=== PATIENT | female | born 1995 | race Asian ===

== ENCOUNTER 2017-10-04 15:57 | Emergency (ER) | payer OTHER ==
[~2017-10-04] VITALS: Ht 149.9 cm; Wt 60.1 kg
[~2017-10-04 15:57] MED LIST: ALBU0.0912 INH
[2017-10-04 16:16] VITALS: BP 120/77
--- NOTE | 2017-10-04 16:20 | NUR ---
Patient ambulated to bed 03.
--- NOTE | 2017-10-04 16:23 | NUR ---
Patient being evaluated by Dr. Bowling at bedside.
[2017-10-04] MEDS ORDERED: ACETAMINOPHEN EXTRA STRENGTH 500 MG TAB PO ONE (16:30)
--- NOTE | 2017-10-04 16:30 | NUR ---
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 Denies LOC. Denies N/V. AOX4, clear speech. VSS.
[2017-10-04 17:06] VITALS: BP 120/77
--- NOTE | 2017-10-04 17:06 | NUR ---
Patient discharged with v/s stable. Written and verbal after care instructions given and explained. Patient alert, oriented and verbalized understanding of instructions. Ambulatory with steady gait. All questions addressed prior to discharge. ID band removed. Patient advised to follow up with PMD. Rx of Tylenol 500mg given. Patient educated on indication of medication including possible reaction and side effects. Opportunity to ask questions provided and answered.
== END 2017-10-04 17:06 | disposition home or self-care (01) ==
LOC: MED 15:57
DX: S09.90XA Unspecified injury of head, initial encounter (principal); J45.909 Unspecified asthma, uncomplicated; Z79.899 Other long term (current) drug therapy; W22.8XXA Striking against or struck by other objects, initial encounter; Y93.89 Activity, other specified; Y92.89 Other specified places as the place of occurrence of the external cause; Y99.8 Other external cause status
CPT/HCPCS: 70450; 99284

== ENCOUNTER → 2018-02-15 | Outpatient (CLI) | payer OTHER ==
[2018-02-15 09:27] LABS: BASOPHILS % (AUTO) 0.7 % (0.0-2.0); EOSINOPHILS # (AUTO) 0.1 K/uL (0-0.4); EOSINOPHILS % (AUTO) 2.6 % (0.0-4.0); HEMATOCRIT 42.9 % (36-48); HEMOGLOBIN 14.4 g/dL (12.0-16.0); LYMPHOCYTES # (AUTO) 1.8 K/uL (2.5-16.5); MEAN CORPUSCULAR HEMOGLOBIN 30 pg (27-31); MEAN CORPUSCULAR HGB CONC 34 g/dL (33-37); MEAN CORPUSCULAR VOLUME 90.8 fL (80-94); MONOCYTES # (AUTO) 0.4 K/uL (0.8-1.0); MONOCYTES % (AUTO) 8.3 % (1.7-9.3); NEUTROPHILS # (AUTO) 2.4 K/uL (1.8-7.7); NEUTROPHILS % (AUTO) 50.4 % (42.2-75.2); PLATELET COUNT (AUTO) 206 K/uL (140-450); RED BLOOD CELL COUNT(AUTO) 4.72 MIL/uL (4.20-5.40); RED CELL DISTRIBUTION WIDTH 12.5 % (11.6-13.7); WHITE BLOOD COUNT (AUTO) 4.9 K/uL (4.8-10.8)
[2018-02-15 09:51] LABS: ALBUMIN 4.2 g/dL (3.4-5.0); ANION GAP 12.8 (8-16); CARBON DIOXIDE 26.4 mmol/L (21-32); CHOL/HDL RATIO 2.1 (1-4.5); POTASSIUM 4.2 mmol/L (3.5-5.1); THYROID STIMULATING HORMONE 1.13 uIU/mL (0.34-3.74); TOTAL BILIRUBIN 0.6 mg/dL (0.0-1.0)
== END ==
LOC: MLB 08:56
PROVIDERS: ATTEND Internal Medicine Geriatric Medicine
DX: Z00.00 Encounter for general adult medical examination without abnormal findings (principal)
CPT/HCPCS: 36415; 80053; 84443; 85025

== ENCOUNTER 2018-09-29 20:11 | Emergency (ER) | payer OTHER ==
[~2018-09-29] VITALS: Ht 152.4 cm; Wt 56.7 kg
[2018-09-29 20:11] VITALS: BP 126/76
--- NOTE | 2018-09-29 20:15 | NUR ---
PT PRESENTS TO ED WITH INSECT BITE TO LEFT MEDIAL ANKLE X3 DAYS. X2 AREA, EACH 1CM, RED, WARM, HEAT, ONE WITH BLISTER PRESENT AND WEEPING SEROUS FLUID. PT STATES 4/10 ACHING PAIN WITH AMBULATION. <1+ NON-PITTING EDEMA PRESENT AROUND SITE. VSS. POSITIONED IN BED FOR COMFORT. ER MD AWARE. CONTNIUE TO MONITOR.
--- NOTE | 2018-09-29 20:15 | NUR ---
PT TAKEN TO BED 9
[2018-09-29 20:43] VITALS: BP 126/72
== END 2018-09-29 20:43 | disposition home or self-care (01) ==
LOC: MED 20:11
DX: S90.562A Insect bite (nonvenomous), left ankle, initial encounter (principal); L08.9 Local infection of the skin and subcutaneous tissue, unspecified; J45.909 Unspecified asthma, uncomplicated; Z79.899 Other long term (current) drug therapy; W57.XXXA Bitten or stung by nonvenomous insect and other nonvenomous arthropods, initial encounter; Y93.89 Activity, other specified; Y92.89 Other specified places as the place of occurrence of the external cause; Y99.8 Other external cause status
CPT/HCPCS: 99283

== ENCOUNTER 2019-03-06 17:27 | Emergency (ER) | payer OTHER ==
[~2019-03-06] VITALS: Ht 149.9 cm; Wt 56.9 kg
--- NOTE | 2019-03-06 17:27 | NUR ---
PATIENT AMBULATED TO ER BED 3.
[2019-03-06 17:50] VITALS: BP 127/73
--- NOTE | 2019-03-06 18:00 | NUR ---
PATIENT PRESENTS TO ED WITH C/O DOG BITE TO LEFT RING FINGER BY OWN YORK[place]/POODLE. PAIN 8/10. NO ACTIVE BLEEDING AT THIS TIME. VSS; PATIENT POSITIONED FOR COMFORT; HOB ELEVATED; BEDRAILS UP X2; BED DOWN. ER MD MADE AWARE OF PT STATUS.
[2019-03-06] MEDS ORDERED: ACETAMINOPHEN 325 MG TAB PO ONE (18:15)
--- NOTE | 2019-03-06 18:44 | NUR ---
APPLIED DRESSING WITHOUT ANY ISSUES TO LEFT RING FINGER
[2019-03-06 19:20] VITALS: BP 111/64
--- NOTE | 2019-03-06 19:20 | NUR ---
DISCHARGE PAPERS GIVEN TO PT. 02/11 PAIN BUT TOLLERABLE. BANDAGE IN PLACE WITH BLEEDING CONTROLLED. RX FOR BACTRIM, AUGMENTIN, AND IBUPROFEN GIVEN. SIDE EFFECTS EXPLAINED. POST CARE EXPLAINED. INSTRUCTED TO F/U WITH PCP AND WHEN TO RETURN TO ER. PT VERBALLIZED UNDERSTANDING OF DC INSTRUCTIONS. ALL QUESTIONS ANSWERED.
== END 2019-03-06 19:20 | disposition home or self-care (01) ==
LOC: MED 17:27
DX: S61.235A Puncture wound without foreign body of left ring finger without damage to nail, initial encounter (principal); J45.909 Unspecified asthma, uncomplicated; Z79.899 Other long term (current) drug therapy; W54.0XXA Bitten by dog, initial encounter; Y93.89 Activity, other specified; Y92.89 Other specified places as the place of occurrence of the external cause; Y99.8 Other external cause status
CPT/HCPCS: 90471; 90715; 99283

== ENCOUNTER 2019-03-10 18:46 | Emergency (ER) | payer OTHER ==
[~2019-03-10] VITALS: Ht 149.9 cm; Wt 56.7 kg
--- NOTE | 2019-03-10 18:59 | NUR ---
PATIENT AMBULATED TO ER BED 11
[2019-03-10 19:08] VITALS: BP 131/84
--- NOTE | 2019-03-10 19:26 | NUR ---
PT TO ED WITH C/O LEFT HAND/ARM NUMBNESS X 4 DAYS S/P DOG BITE. FULL ROM PRESENT. NO OBVIOUS DEFORMITY NOTED. PT PLACED INTO BED, PENDING MD DOOLEY.
--- NOTE | 2019-03-10 19:42 | NUR ---
WRIST AND FOREARM SPLINT APPLID TO PT L WRIST AND FOREARM. +CSM
[2019-03-10 19:45] VITALS: BP 131/84
--- NOTE | 2019-03-10 19:45 | NUR ---
Patient discharged with v/s stable. Written and verbal after care instructions given and explained. Patient alert, oriented and verbalized understanding of instructions. Ambulatory with steady gait. All questions addressed prior to discharge. ID band removed. Patient advised to follow up with PMD. Rx of IBUPROFEN AND FLEXERIL given. Patient educated on indication of medication including possible reaction and side effects. Opportunity to ask questions provided and answered.
== END 2019-03-10 19:45 | disposition home or self-care (01) ==
LOC: MED 18:46
DX: S61.254A Open bite of right ring finger without damage to nail, initial encounter (principal); R20.0 Anesthesia of skin; J45.909 Unspecified asthma, uncomplicated; Z79.899 Other long term (current) drug therapy; W54.0XXA Bitten by dog, initial encounter; Y93.89 Activity, other specified; Y92.89 Other specified places as the place of occurrence of the external cause; Y99.8 Other external cause status
CPT/HCPCS: 99283

== ENCOUNTER 2019-04-03 12:31 | Outpatient (CLI) | payer OTHER ==
[2019-04-04 09:13] LABS: HEPATITIS B SURFACE ANTIBODY Non Reactive (.)
[2019-04-04 15:14] LABS: VARICELLA IGG ANTIBODY 167 index (Immune >165)
== END 2019-04-03 21:14 | disposition home or self-care (01) ==
LOC: MLB 12:31
PROVIDERS: ATTEND Internal Medicine Geriatric Medicine
DX: I26.99 Other pulmonary embolism without acute cor pulmonale (principal)
CPT/HCPCS: 36415; 86706; 86765; 86787